=== PATIENT | male | born 1935 | race Caucasian/White ===

== ENCOUNTER 2024-11-21 12:34 | Emergency (ER) | payer MEDICARE, SELFPAY ==
[2024-11-21 12:42] VITALS: BP 138/85; PULSE 91; RESP 20; TEMP 36.3; O2SAT 100; BMI 22.1
--- NOTE | 2024-11-21 13:05 | ED_ITS ---
HPI - Male Genitourinary General Chief complaint: Urogenital-Male Stated complaint: DIFFICULTY URINATING Time Seen by Provider: 11/21/24 12:38 Source: patient, EMS and RN notes reviewed Mode of arrival: EMS Limitations: other (Baseline cognitive dysfunction) History of Present Illness ED Provider: Ray Arteaga DO HPI Narrative: 88-year-old male with past medical history of CKD, anemia, BPH, heart failure, hyperlipidemia, paroxysmal atrial fibrillation, diabetes, and intermittent urinary incontinence as well as vascular dementia presents to the ED via EMS from senior living due to reports that he has a ?penis problem?. History is significantly limited from the patient states he has an issue with his right leg and is unable to describe it further. He denies any discomfort whatsoever. He denies urinary symptoms although I am uncertain if he understands my questions with his history of dementia. skilled nursing was concerned that the patient has not been able to micturate in a long time. Related Data Allergies Allergy/AdvReac Type Severity Reaction Status Date / Time No Known Allergies Allergy Verified 11/21/24 12:45 Review of Systems 2 Review of Systems: Yes all other systems are reviewed and are negative [facility] Social History Social History Advance Directives: No Advance Directives Information Provided: No Physical Exam 2 Vital Signs: Vital Signs: Last Vital Signs Temp 97.8 F 11/21/24 13:45 Pulse 94 11/21/24 13:45 Resp 16 11/21/24 13:45 BP 134/60 11/21/24 13:45 Pulse Ox 97 11/21/24 13:45 O2 Del Method Room Air 11/21/24 13:45 BMI result Body Mass Index 22.1 Constitutional: ?Alert, oriented, speaking in full sentences, appears comfortable HEENT: ?Normocephalic, atraumatic. ?Moist mucous membranes Eyes: ?PERRL, EOMI Neck: ?Supple, nontender Chest: ?No chest wall tenderness Respiratory: ?Lungs clear to auscultation, no increased work of breathing Cardio: ?Regular rate and rhythm, no murmur, 2+ radial and DP pulses symmetrically GI: ?Soft, nondistended, nontender Back: ?Normal range of motion, nontender Skin: ?No rash, no lesions Neuro: ?Alert and oriented to person, place and time, moves all 4 extremities, no focal deficits Extremities: ?No swelling or tenderness, no bony tenderness to the right lower extremity with full active and passive range of motion Psych: ?Calm, alert and cooperative, appropriate behavior Medical Decision Making Medical Decision Making MDM Narrative: This is a well-appearing finally stable male presenting from senior living for concerns regarding urinary symptoms. He is afebrile. He has no CVA tenderness and does not appear septic. He has no bony tenderness. He has been able to urinate here multiple times and has not demonstrated any urinary retention. Urinalysis shows no signs of cystitis, no hematuria and CBC and BMP are unremarkable without renal dysfunction or significant anemia. No further workup is required at this time and the patient is discharged in a stable state with return precautions for any further concerns, development of pain or fevers. Lab Data 11/21/24 13:34 11/21/24 13:34 Labs: Lab Results 11/21/24 11/21/24 Range/Units 13:34 14:01 WBC 7.0 (4.8-10.8) X10*3/uL RBC 3.35 L (4.60-5.80) X10*6/uL Hgb 11.4 L (14.0-18.0) g/dl Hct 33.4 L (42.0-52.0) % MCV 99.7 H (80.0-98.0) fL MCH 34.0 H (27.0-33.0) pg MCHC 34.1 (31.0-36.0) g/dl RDW 13.6 (11.0-16.0) % Plt Count 241 (160-400) X10*3/uL MPV 9.9 (9.4-12.4) fL Immature Gran % (Auto) 0.3 (0.0-0.4) % Neut % (Auto) 76.4 H (45-73) % Lymph % (Auto) 7.9 L (20-40) % [place] % (Auto) 12.6 H (2-11) % Eos % (Auto) 1.9 (0-4) % Baso % (Auto) 0.9 (0-2) % Lymph # (Auto) 0.6 L (1.2-4.9) X10*3/uL [place] # (Auto) 0.9 (0.1-1.2) X10*3/uL Eos # (Auto) 0.1 (0.0-0.4) X10*3/uL Baso # (Auto) 0.1 (0.0-0.2) X10*3/uL Abs Immat Gran (auto) 0.02 (0.00-0.03) X10*3/uL Absolute Neuts (auto) 5.3 (2.0-8.3) x10*3/uL Absolute Nucleated RBC 0.000 (0.0-0.012) X10*3/uL Nucleated RBC % (auto) 0.0 (0.0-0.2) /100WBC Sodium 139 (135-145) mmol/L Potassium 4.7 (3.3-5.1) mmol/L Chloride 106 (96-108) mmol/L Carbon Dioxide 25 (22-29) mmol/L Anion Gap 13 (12-20) BUN 23 H (9-16) mg/dL Creatinine 0.95 (0.5-1.4) mg/dL Estim Creat Clear Calc 53.0 Estimated GFR > 60 Random Glucose 94 (60-115) mg/dL Calcium 9.3 (8.4-10.2) mg/dL Urine Color Yellow Urine Appearance Clear Urine pH 7.0 (5.0-9.0) Ur Specific [place] 1.010 (1.005-1.025) Urine Protein Negative (Neg-Trace) mg/dL Urine Glucose (UA) Negative (Negative) mg/dL Urine Ketones Negative (Negative) mg/dL Urine Blood Negative (Negative) Urine Nitrite Negative (Negative) Ur Leukocyte Esterase Negative (Negative) Independent Interpretation I performed an independent interpretation of an: EKG Interpretation: Normal sinus rhythm at 88 beats per minute, normal axis, normal intervals, no diagnostic ST or T-wave abnormalities, no signs of Dydxo-Dxvzvdkch-Zspbb syndrome, av manny blockade, hypertrophic cardiomyopathy, arrhythmogenic right ventricular cardiomyopathy, Brugada syndrome, prolonged QT or any ischemic changes. Discharge Plan Discharge Clinical Impression: Encounter for medical screening examination Patient Disposition: Home, Self-Care Instructions: Bedwetting (ED) Additional Instructions: Evaluated for concerns for urinary symptoms. Has no signs of urinary retention, no evidence of urinary tract infection on urinalysis and unremarkable CBC and BMP. Please return with any development of pain, fevers, concerns for urinary retention or any other acute concerns or changes. Print Language: Finnish
--- NOTE | 2024-11-21 13:36 | PC.NURSE ---
spoke with nurse at [facility], she went into patients room this morning to medicate patient, patient stated to her that his penis wasnt working stated to her he could not pee. patient is ambulatory and continent, uses bathroom on own, unknown last void, patient has dementia and cant remember when. 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 nurse states patient has hx of bph, urinary retention and dementa. upon arrival to ED patient is awake and alert, oriented to self. patient states he has stones that are making it so he cant pee, he states the stones pile up and he wont be able to pee. patient bladder scanned 46ml. patient given water to encourage po intake and urination. patient changed into hospital attire
[2024-11-21 13:39] LABS: MANUAL DIFF FLAG NO
[2024-11-21 13:40] LABS: Basophils Absolute Auto 0.1 X10*3/uL (0.0-0.2); Basophils Percent Auto 0.9 % (0-2); Eosinophils Absolute Auto 0.1 X10*3/uL (0.0-0.4); Eosinophils Percent Auto 1.9 % (0-4); Hematocrit 33.4 % (42.0-52.0); Hemoglobin 11.4 g/dl (14.0-18.0); Imm Gran Abs Auto 0.02 X10*3/uL (0.00-0.03); Imm Gran Pct Auto 0.3 % (0.0-0.4); Lymphocytes Absolute Auto 0.6 X10*3/uL (1.2-4.9); Lymphocytes Percent Auto 7.9 % (20-40); Mean Corpuscular HGB Conc 34.1 g/dl (31.0-36.0); Mean Corpuscular Volume 99.7 fL (80.0-98.0); Mean Platelet Volume 9.9 fL (9.4-12.4); Monocytes Absolute Auto 0.9 X10*3/uL (0.1-1.2); Monocytes Percent Auto 12.6 % (2-11); Neutrophils Absolute Auto 5.3 x10*3/uL (2.0-8.3); Neutrophils Percent Auto 76.4 % (45-73); Platelet Count 241 X10*3/uL (160-400); Red Blood Count 3.35 X10*6/uL (4.60-5.80); Red Cell Distribution Width 13.6 % (11.0-16.0)
[2024-11-21 13:45] VITALS: BP 134/60; PULSE 94; RESP 16; TEMP 36.6; O2SAT 97
[2024-11-21 13:55] LABS: Anion Gap 13 (12-20); Blood Urea Nitrogen 23 mg/dL (9-16); Calcium 9.3 mg/dL (8.4-10.2); Carbon Dioxide 25 mmol/L (22-29); Chloride 106 mmol/L (96-108); Estimated Glomerular Filt Rate > 60; Glucose Random 94 mg/dL (60-115); Potassium 4.7 mmol/L (3.3-5.1); Sodium 139 mmol/L (135-145)
--- NOTE | 2024-11-21 14:04 | PC.NURSE ---
patient had episode of incontinence. patient cleaned up new linens and gown. patient given urinal, patient then voided into urinal. UA sent to lab
[2024-11-21 14:12] LABS: Appearance Urine Clear; Color Urine Yellow; Glucose Urine UA Negative (Negative); Leukocyte Esterase Urine Negative (Negative); Nitrite Urine Negative (Negative); Urine Blood Negative (Negative); Urine Ketones Negative (Negative); Urine Protein Negative (Neg-Trace)
[2024-11-21 17:44] VITALS: BP 157/55; PULSE 95; RESP 18; TEMP 36.6; O2SAT 98
--- NOTE | 2024-11-21 17:52 | PC.NURSE ---
patient voided additional 600cc in urinal
--- NOTE | 2024-11-21 17:53 | PC.NURSE ---
attempted to call [facility] x2 to give nurse to nurse for patient return. no answer to unit
--- NOTE | 2024-11-21 18:16 | PC.NURSE ---
report given to staff at [facility]
== END 2024-11-21 18:16 | disposition home or self-care (01) ==
PROVIDERS: Emergency Provider Emergency Medicine; PCP Family Medicine
DX: Z71.1 Person with feared health complaint in whom no diagnosis is made (principal); E11.22 Type 2 diabetes mellitus with diabetic chronic kidney disease; I13.0 Hypertensive heart and chronic kidney disease with heart failure and stage 1 through stage 4 chronic kidney disease, or unspecified chronic kidney disease; N18.9 Chronic kidney disease, unspecified; I50.9 Heart failure, unspecified; I48.0 Paroxysmal atrial fibrillation
CPT/HCPCS: 36415; 80048; 81003; 85025; 99283